=== PATIENT | female | born 1960 | race Caucasian/White ===

== ENCOUNTER 2021-02-18 20:53 | Emergency (ER) | payer BC, SELFPAY ==
[~2021-02-18] VITALS: Ht 175.3 cm; Wt 74.8 kg
[2021-02-18 21:00] VITALS: BP_SYST 127
--- NOTE | 2021-02-18 21:00 | NUR ---
Patient triaged and placed in the tent. VSS and patient appears in no acute distress at this time. awaiting available bed, and MD notified of need for MSE.
--- NOTE | 2021-02-18 22:10 | NUR ---
ER at bedside examining patient.
--- NOTE | 2021-02-18 22:41 | NUR ---
Patient given written and verbal discharge instructions and verbalizes understanding. ER MD discussed with patient the results and treatment provided. Patient in stable condition. ID arm band removed. no Rx of given. Patient educated on pain management and to follow up with PMD. Pain Scale 0/10. Opportunity for questions provided and answered. Medication side effect fact sheet provided.
[2021-02-18 22:42] VITALS: BP_SYST 128
== END 2021-02-18 22:41 | disposition home or self-care (01) ==
LOC: SED 20:53
DX: U07.1 COVID-19 (principal)
CPT/HCPCS: 99281